=== PATIENT | male | born 2000 | race Caucasian/White ===

== ENCOUNTER 2020-05-11 08:15 | Emergency (ER) | payer SELFPAY ==
[~2020-05-11] VITALS: Ht 193 cm; Wt 112.5 kg
[2020-05-11] MEDS ORDERED: TETANUS,DIPTH,PERTUSS P/F (BOOSTRIX) 0.5 ML VIAL IM ONE (08:45)
--- NOTE | 2020-05-11 09:04 | ED General ---
General Chief Complaint: Laceration Stated Complaint: HEAD LACERATION Nursing Triage Note: PT AMB TO [facility] WITH COMPLAINT OF LACERATION. STATES SLIPPED WHEN GETTING OUT OF CAR AND HIT FACE ON CAR DOOR. DENIES LOC. HAS LACERATION TO FOREHEAD AND NOSE. Nursing Sepsis Screen: No Definite Risk (PELON CHAVEZ) History of Present Illness Date Seen by Provider: May 11, 2020 Time Seen by Provider: 07:52 Initial Comments this is a 20 y/o male who presents to the ED with 2 facial lacerations he sustained after slipping on rain water and hitting his face on his car door. he has one 3cm laceration to his nose and a 4cm lac to his forehead. denies any other injuries. Denies LOC, N/V/. Timing/Duration: 1/2 Hour Severity: Mild Modifying Factors: improves with Other (N/A) Associated Systoms: Denies Symptoms (PELON CHAVEZ) Allergies and Home Medications Allergies Coded Allergies: No Known Drug Allergies (Unverified , 05/11/20) Patient Home Medication List Home Medication List Reviewed: Yes (STANLEY KRISHNAN MD) Review of Systems Review of Systems Constitutional: see HPI EENTM: no symptoms reported Respiratory: no symptoms reported Cardiovascular: no symptoms reported Musculoskeletal: see HPI Skin: see HPI, lesions, other (laceration) (PELON CHAVEZ) Past Wyzqaks-Lgrypv-Otpzde Hx Past Med/Social Hx: Reviewed Nursing Past Med/Soc Hx (STANLEY KRISHNAN MD) Patient Social History Alcohol Use: Denies Use Recreational Drug Use: Yes Drug of Choice: mariujuana Smoking Status: Never a Smoker Recent Foreign Travel: No Contact w/Someone Who Travel: No Recent Infectious Disease Expo: No Recent Hopitalizations: No (PELON CHAVEZ) Immunizations Up To Date Tetanus Booster (TDap): Unknown PED Vaccines UTD: Yes (PELON CHAVEZ) Seasonal Allergies Seasonal Allergies: No (PELON CHAVEZ) Past Medical History Surgeries: No Respiratory: No Cardiac: No Neurological: No Genitourinary: No Gastrointestinal: No Musculoskeletal: No Endocrine: No HEENT: No Cancer: No Psychosocial: No Integumentary: No Blood Disorders: No (PELON CHAVEZ) Family Medical History Reviewed Nursing Family Hx (STANLEY KRISHNAN MD) Physical Exam Vital Signs Vital Signs - First Documented 05/11/20 08:21 Temp 36.5 Pulse 98 Resp 12 B/P (MAP) 151/101 (118) Pulse Ox 98 O2 Delivery Room Air (STANLEY KRISHNAN MD) Vital Signs Capillary Refill : Less Than 3 Seconds (PELON CHAVEZ) Height, Weight, BMI Height: '" Weight: lbs. oz. kg; 30.00 BMI Method: General Appearance: No Apparent Distress, WD/WN Eyes: Bilateral Eye Normal Inspection, Bilateral Eye PERRL HEENT: PERRL/EOMI, TMs Normal Neck: Full Range of Motion, Normal Inspection Respiratory: Chest Non Tender, Lungs Clear, No Accessory Muscle Use Cardiovascular: Regular Rate, Rhythm, No Murmur Neurologic/Psychiatric: Alert, Oriented x3 Skin: Normal Color, Warm/Dry, Other (has a 3 cm superficial, linear laceration to bridge of nose, minimal bleeding; has a 4cm superficial, linear laceration to forehead with minimal bleeding; no FB visiualized in either wound) (PELON CHAVEZ) Respiratory: Lungs Clear, No Respiratory Distress Cardiovascular: Regular Rate, Rhythm, No Murmur Neurologic/Psychiatric: Alert, Oriented x3 Skin: Warm/Dry, Other (has a 3 cm superficial, linear laceration to bridge of nose, minimal bleeding; has a 4cm superficial, linear laceration to forehead with minimal bleeding; no FB visiualized in either wound) (STANLEY KRISHNAN MD) Procedures/Interventions Wound Location: Face (forehead, R), Nose Other Wound Location 3cm: Nose, 4cm Forehead Wound's Depth, Shape: superficial, linear Wound Explored: clean Irrigated w/ Saline (ccs): 500 Betadine Prep?: No Wound Debrided: minimal Other Closure Supply: Wound Adhesive Sterile Dressing Applied?: No Progress Pt tolerated procedure well. No complications, minimal bleeding. (PELON CHAVEZ [facility]) Progress/Results/Core Measures Suspected Sepsis Recent Fever Within 48 Hours: No Infection Criteria Present: None New/Unexplained Altered Menta: No Sepsis Screen: No Definite Risk SIRS Temperature: Pulse: 98 Respiratory Rate: 12 Blood Pressure 151 /101 Mean: 118 [facility] Results/Orders My Orders Orders - STANLEY KRISHNAN MD Dipht,Pertuss(Acell),Tet Adult (Boostrix (05/11/20 08:45) (STANLEY KRISHNAN MD) Medications Given in ED Current Medications Medications Dose Ordered Sig/Carson Route Start Time Stop Time Status Last Admin Dose Admin Diphtheria/ Tetanus/Acell Pertussis 0.5 ml ONCE ONCE IM 05/11/20 08:45 05/11/20 08:46 DC 05/11/20 09:47 0.5 ML (STANLEY KRISHNAN MD) Vital Signs/I&O 05/11/20 05/11/20 08:21 09:57 Temp 36.5 36.5 Pulse 98 98 Resp 12 12 B/P (MAP) 151/101 (118) 151/101 (118) Pulse Ox 98 98 O2 Delivery Room Air (STANLEY KRISHNAN MD) Vital Signs/I&O Capillary Refill : Less Than 3 Seconds (PELON CHAVEZ [facility]) Blood Pressure Mean: 118 Progress Note : Time: 07:52 Progress Note Seen and evaluated. Two superficial lacerations with minimal bleeding. Will glue both lacerations closed. will update tetanus. Plan to D/C home. (PELON CHAVEZ [facility]) Progress Note : Progress Note I have seen and evaluated the patient and agree with above except as indicated. I have directed the plan care. He is here after slipping and falling getting out of his car and hitting his head on the door. Has lacerations as above to the forehead and bridge of the nose. Denies other injury. Tetanus not up-to-date. Plan as above. Tetanus updated. Wounds closed by student with good closure and approximation. Discharged home with return precautions. Patient verbalized understanding of instructions and agreement with plan. (STANLEY KRISHNAN MD) Departure Impression Primary Impression: Laceration of nose Qualified Codes: S01.21XA - Laceration without foreign body of nose, initial encounter Additional Impression: Laceration of forehead Qualified Codes: S01.81XA - Laceration without foreign body of other part of head, initial encounter Disposition: 01 HOME, SELF-CARE Condition: Improved Departure-Patient Inst. Decision time for Depature: 09:52 (STANLEY KRISHNAN MD) Patient Instructions: Laceration Repair With Glue (DC) Add. Discharge Instructions: All discharge instructions reviewed with patient and/or family. Voiced understanding. Do not put ointment, lotions or creams over the glue as this will cause premature lifting. Glue should follow off on its own over the next 4-5 days. Return for worse pain, swelling, increasing redness, foul-smelling drainage, fever or other concerns as needed. It is okay to shower but do not soak wound for any prolonged period as this will cause premature lifting of the glue. PELON CHAVEZ [facility] May 11, 2020 09:04 STANLEY KRISHNAN MD May 11, 2020 09:53
[2020-05-11 09:57] VITALS: BP 151/101
== END 2020-05-11 09:57 | disposition home or self-care (01) ==
LOC: ER 08:18
DX: S01.21XA Laceration without foreign body of nose, initial encounter (principal); S01.81XA Laceration without foreign body of other part of head, initial encounter; W01.198A Fall on same level from slipping, tripping and stumbling with subsequent striking against other object, initial encounter
CPT/HCPCS: 12013; 90715

== ENCOUNTER 2022-10-17 11:55 | Emergency (ER) | payer SELFPAY ==
--- NOTE | 2022-10-17 12:08 | ED General ---
General Chief Complaint: Fever-Adult/Adol Stated Complaint: FEVER | CHEST CONGESTION Source of Information: Patient Exam Limitations: No Limitations History of Present Illness Date Seen by Provider: Oct 17, 2022 Time Seen by Provider: 12:00 Initial Comments Patient is a 22-year-old male who presents to the emergency department for eval uation of nasal congestion, cough, and fever over the last week. Patient states he was seen at a walk-in clinic and given a breathing treatment. States his symptoms have persisted. Has not taken anything today for the symptoms. Denies any known sick contacts. States he has also had some sweatiness and general fatigue. Allergies and Home Medications Allergies Coded Allergies: No Known Drug Allergies (Unverified , 05/11/20) Patient Home Medication List Home Medication List Reviewed: Yes Amoxicillin (Amoxicillin) 500 Mg Capsule, 1,000 MG PO TID Prescribed by: Jarek Merchant on 10/17/22 1328 Azithromycin (Azithromycin) 250 Mg Tablet, 250 MG PO UD Prescribed by: Jarek Merchant on 10/17/22 1328 Review of Systems Review of Systems Constitutional: see HPI, weakness EENTM: see HPI, nose congestion Respiratory: see HPI, cough Cardiovascular: no symptoms reported Gastrointestinal: no symptoms reported Genitourinary: no symptoms reported Musculoskeletal: no symptoms reported Skin: no symptoms reported Psychiatric/Neurological: No Symptoms Reported Hematologic/Lymphatic: No Symptoms Reported Immunological/Allergic: no symptoms reported Past Jjxvijy-Nsygzx-Gwctut Hx Patient Social History Tobacco Use?: No Substance use?: Yes Substance type: Marijuana Alcohol Use?: Yes Pt feels they are or have been: No Immunizations Up To Date Tetanus Booster (TDap): Unknown PED Vaccines UTD: Yes Influenza Vaccine Up-to-Date: No; Not Current Seasonal Allergies Seasonal Allergies: No Past Medical History Surgery/Hospitalization HX: htn, asthma TONSILS Surgeries: No Respiratory: No Cardiac: No Neurological: No Genitourinary: No Gastrointestinal: No Musculoskeletal: No Endocrine: No HEENT: No Cancer: No Psychosocial: No Integumentary: No Blood Disorders: No Physical Exam Vital Signs Vital Signs - First Documented 10/17/22 12:02 Temp 36.9 Pulse 102 Resp 20 B/P (MAP) 163/111 (128) Capillary Refill : Height, Weight, BMI Height: '" Weight: lbs. oz. kg; 30.00 BMI Method: General Appearance: No Apparent Distress, WD/WN HEENT: PERRL/EOMI, TMs Normal, Normal ENT Inspection, Pharynx Normal Neck: Full Range of Motion, Normal Inspection, Non Tender, Supple Respiratory: Chest Non Tender, Lungs Clear, Normal Breath Sounds, No Accessory Muscle Use, No Respiratory Distress Cardiovascular: Regular Rate, Rhythm Gastrointestinal: Non Tender, Soft Neurologic/Psychiatric: Alert, Oriented x3, No Motor/Sensory Deficits, Normal Mood/Affect Skin: Normal Color, Warm/Dry Progress/Results/Core Measures Suspected Sepsis SIRS Temperature: Pulse: Respiratory Rate: Laboratory Tests 10/17/22 12:22: White Blood Count 17.0H Blood Pressure / Mean: Laboratory Tests 10/17/22 12:22: Creatinine 0.72, Platelet Count 308, Total Bilirubin 0.5 Results/Orders Lab Results Laboratory Tests Test 10/17/22 12:22 Range/Units White Blood Count 17.0 H 4.3-11.0 10^3/uL Red Blood Count 4.45 4.30-5.52 10^6/uL Hemoglobin 14.2 13.3-17.7 g/dL Hematocrit 40 40-54 % Mean Corpuscular Volume 90 80-99 fL Mean Corpuscular Hemoglobin 32 25-34 pg Mean Corpuscular Hemoglobin Concent 36 32-36 g/dL Red Cell Distribution Width 12.3 10.0-14.5 % Platelet Count 308 130-400 10^3/uL Mean Platelet Volume 10.4 9.0-12.2 fL Immature Granulocyte % (Auto) 9 % Neutrophils (%) (Auto) 70 42-75 % Lymphocytes (%) (Auto) 11 L 12-44 % Monocytes (%) (Auto) 11 0-12 % Eosinophils (%) (Auto) 0 0-10 % Basophils (%) (Auto) 0 0-10 % Neutrophils # (Auto) 11.8 H 1.8-7.8 10^3/uL Lymphocytes # (Auto) 1.8 1.0-4.0 10^3/uL Monocytes # (Auto) 1.8 H 0.0-1.0 10^3/uL Eosinophils # (Auto) 0.1 0.0-0.3 10^3/uL Basophils # (Auto) 0.1 0.0-0.1 10^3/uL Immature Granulocyte # (Auto) 1.5 H 0.0-0.1 10^3/uL Neutrophils % (Manual) 74 % Lymphocytes % (Manual) 14 % Monocytes % (Manual) 10 % Eosinophils % (Manual) 1 % Band Neutrophils 1 % Blood Morphology Comment NORMAL Sodium Level 137 135-145 MMOL/L Potassium Level 3.4 L 3.6-5.0 MMOL/L Chloride Level 102 98-107 MMOL/L Carbon Dioxide Level 19 L 21-32 MMOL/L Anion Gap 16 H 5-14 MMOL/L Blood Urea Nitrogen 9 7-18 MG/DL Creatinine 0.72 0.60-1.30 MG/DL Estimat Glomerular Filtration Rate 131 BUN/Creatinine Ratio 13 Glucose Level 95 70-105 MG/DL Calcium Level 9.7 8.5-10.1 MG/DL Corrected Calcium 9.8 8.5-10.1 MG/DL Total Bilirubin 0.5 0.1-1.0 MG/DL Aspartate Amino Transf (AST/SGOT) 23 5-34 U/L Alanine Aminotransferase (ALT/SGPT) 40 0-55 U/L Alkaline Phosphatase 76 40-136 U/L Total Protein 8.0 6.4-8.2 GM/DL Albumin 3.9 3.2-4.5 GM/DL My Orders Orders - MERCHANTJAREK APRN Cbc With Automated Diff (10/17/22 12:06) Comprehensive Metabolic Panel (10/17/22 12:06) Iv/Invasive Line Insertion .IV INSERT (10/17/22 12:06) Chest 1 View, Ap/Pa Only (10/17/22 12:06) Lactated Ringers (Lr 1000 Ml Iv Solution (10/17/22 12:15) Manual Differential (10/17/22 12:22) Vital Signs/I&O 10/17/22 10/17/22 12:02 13:37 Temp 36.9 36.9 Pulse 102 90 Resp 20 18 B/P (MAP) 163/111 (128) 148/93 10/18/22 00:00 Intake Total 1000 ml Balance 1000 ml Capillary Refill : Progress Note : Progress Note Patient is nontoxic and well-hydrated on exam. He does appear slightly diaphoretic. Vital signs initially reassuring. No adventitious lung sounds or increased work of breathing noted. Orders placed for CBC, CMP, IV insertion, and chest x-ray. A liter of LR was also ordered. CBC notable for leukocytosis and left shift. CMP without any significant metabolic derangement. Chest x-ray notable for left basilar opacities concerning for possible pneumonia. Given patient's symptoms, he will be given a course of antibiotics for treatment. Discussed supportive care and anticipatory guidance. Follow-up with PCP. Return precautions for symptomology discussed. Patient verbalized understanding. Departure Impression Primary Impression: Left lower lobe pneumonia Qualified Codes: J18.9 - Pneumonia, unspecified organism Disposition: HOME, SELF-CARE Condition: Stable Departure-Patient Inst. Decision time for Depature: 13:25 Referrals: JAZMIN MONROE APRN (PCP) Primary Care Physician [facility] (Family) Primary Care Physician Patient Instructions: Pneumonia, Adult ED Scripts Azithromycin (Azithromycin) 250 Mg Tablet 250 MG PO UD, #6 TAB 0 Refills TAKE 2 TABLETS ON DAY ONE THEN TAKE 1 TABLET DAILY FOR FOUR MORE DAYS Prov: JAREK MERCHANT APRN 10/17/22 Amoxicillin (Amoxicillin) 500 Mg Capsule 1000 MG PO TID for 5 Days, #30 CAP 0 Refills Prov: JAREK MERCHANT APRN 10/17/22 JAREK MERCHANT APRN Oct 17, 2022 12:08
[2022-10-17] MEDS ORDERED: LACTATED RINGERS 1,000 ML IV SCH (12:15)
--- NOTE | 2022-10-17 12:24 | Diagnostic Imaging Report ---
EXAMINATION: Chest 1 view HISTORY: Cough. Fever. COMPARISON: None available. FINDINGS: Patchy opacities are seen in the left lung base. The right lung is clear. No large pleural effusion or pneumothorax. The cardiac silhouette is unremarkable. IMPRESSION: 1. Left basilar opacities, suspicious for infection. Components of atelectasis may also be present. Dictated by: Dictated on workstation # [id number]
[2022-10-17 12:34] LABS: BASOPHILS # (AUTO) 0.1 10^3/uL (0.0-0.1); BASOPHILS % (AUTO) 0 % (0-10); EOSINOPHILS # (AUTO) 0.1 10^3/uL (0.0-0.3); EOSINOPHILS % (AUTO) 0 % (0-10); HEMATOCRIT 40 % (40-54); HEMOGLOBIN 14.2 g/dL (13.3-17.7); LYMPHOCYTES # (AUTO) 1.8 10^3/uL (1.0-4.0); LYMPHOCYTES % (AUTO) 11 % (12-44); MEAN CORPUSCULAR HEMOGLOBIN 32 pg (25-34); MEAN CORPUSCULAR HGB CONC 36 g/dL (32-36); MEAN CORPUSCULAR VOLUME 90 fL (80-99); MEAN PLATELET VOLUME 10.4 fL (9.0-12.2); MONOCYTES # (AUTO) 1.8 10^3/uL (0.0-1.0); MONOCYTES % (AUTO) 11 % (0-12); NEUTROPHILS # (AUTO) 11.8 10^3/uL (1.8-7.8); NEUTROPHILS % (AUTO) 70 % (42-75); PLATELET COUNT 308 10^3/uL (130-400)
[2022-10-17 12:42] LABS: ALBUMIN 3.9 GM/DL (3.2-4.5); POTASSIUM 3.4 MMOL/L (3.6-5.0)
[2022-10-17 12:43] LABS: CALCIUM 9.7 MG/DL (8.5-10.1)
[2022-10-17 12:46] LABS: BILIRUBIN,TOTAL 0.5 MG/DL (0.1-1.0)
[2022-10-17 12:48] LABS: CREATININE SERUM 0.72 MG/DL (0.60-1.30)
[2022-10-17 13:01] LABS: BAND NEUTROPHILS 1 %; EOSINOPHILS % (MANUAL) 1 %; LYMPHOCYTES % (MANUAL) 14 %; MONOCYTES % (MANUAL) 10 %; NEUTROPHILS % (MANUAL) 74 %; RBC MORPH NORMAL
[2022-10-17] MEDS ORDERED: AMOX500C2 PO (13:28)
[2022-10-17] MEDS ORDERED: AZIT250T12 PO (13:28)
[2022-10-17 13:37] VITALS: BP 148/93
== END 2022-10-17 13:38 | disposition home or self-care (01) ==
LOC: EDUNIT# 11:55 → ER 11:58
DX: J18.9 Pneumonia, unspecified organism (principal); D72.829 Elevated white blood cell count, unspecified; Z28.310 Unvaccinated for COVID-19
CPT/HCPCS: 36415; 71045; 80053; 85007; 85027